=== PATIENT | male | born 1965 | race Caucasian/White ===

== ENCOUNTER 2019-05-25 18:25 | Emergency (ER) | payer BC ==
[2019-05-25 18:43] VITALS: O2SAT 97
[2019-05-25] MEDS ORDERED: TYLENOL EXTRA STRENGTH 500 MG PO STA (19:47)
--- NOTE | 2019-05-25 19:47 | ERPHSYRPT ---
- History of Present Illness Time Seen by Provider: 05/25/19 19:45 Source: patient Exam Limitations: no limitations Patient Subjective Stated Complaint: Pt states "My whole family tested positive for the flu and I am really hurting today and I think I have it." Triage Nursing Assessment: Pt presented alert and oriented X 3, skin wpd pt ambulates with an upright steady gait, able to speak in clear full sentecens PT in no apparent respiratory distress. Physician History: Pt states "My whole family tested positive for the flu and I am really hurting today and I think I have it." Timing/Duration: today Cough Quality/Degree: moderate Associated Symptoms: cough, headache, muscle aches, nasal congestion, nasal drainage, sore throat Allergies/Adverse Reactions: No Known Drug Allergies Allergy (Unverified 05/25/19 18:43) Hx Tetanus, Diphtheria Vaccination/Date Given: Yes Hx Influenza Vaccination/Date Given: No Hx Pneumococcal Vaccination/Date Given: No Immunizations Up to Date: Yes - Review of Systems Constitutional: Fever, Chills Eyes: No Symptoms, Tearing Ears, Nose, & Throat: No Symptoms, Throat Pain Respiratory: Cough, No Dyspnea Cardiac: No Chest Pain, No Edema, No Syncope Abdominal/Gastrointestinal: No Abdominal Pain, No Nausea, No Vomiting, No Diarrhea Genitourinary Symptoms: No Dysuria Musculoskeletal: No Back Pain, No Neck Pain Skin: No Rash Neurological: No Dizziness, No Focal Weakness, No Sensory Changes Psychological: No Symptoms Endocrine: No Symptoms All Other Systems: Reviewed and Negative - Past Medical History Pertinent Past Medical History: No - Past Surgical History Past Surgical History: Yes Other Surgical History: cyst removed from shoulder and leg - Social History Smoking Status: Never smoker Exposure to second hand smoke: No Drug Use: none Patient Lives Alone: No - Nursing Vital Signs Nursing Vital Signs: Initial Vital Signs Temperature 101.6 F 05/25/19 18:39 Pulse Rate 107 H 05/25/19 18:39 Respiratory Rate 20 05/25/19 18:39 Blood Pressure 163/106 05/25/19 18:39 O2 Sat by Pulse Oximetry 97 05/25/19 18:39 Pain Scale Pain Intensity 7 - Physical Exam General Appearance: no apparent distress, alert Eye Exam: PERRL/EOMI, eyes nml inspection Ears, Nose, Throat Exam: normal ENT inspection, TMs normal, pharynx normal, moist mucous membranes Neck Exam: normal inspection, non-tender, supple, full range of motion Respiratory Exam: normal breath sounds, lungs clear, No respiratory distress Cardiovascular Exam: regular rate/rhythm, normal heart sounds Gastrointestinal/Abdomen Exam: soft, No tenderness Back Exam: normal inspection, No CVA tenderness, No vertebral tenderness Extremity Exam: normal inspection, normal range of motion Neurologic Exam: alert, oriented x 3, cooperative, normal mood/affect, sensation nml, No motor deficits Skin Exam: normal color, warm, dry, No rash Lymphatic Exam: No adenopathy SpO2: 97 - Course Nursing assessment & vital signs reviewed: Yes Ordered Tests: Medication Summary Discontinued Medications Generic Name Dose Route Start Last Admin Trade Name Freq PRN Reason Stop Dose Admin Acetaminophen 1,000 mg 05/25/19 19:47 05/25/19 19:59 Tylenol Extra Strength 500 Mg PO 05/25/19 19:48 1,000 mg STAT STA Administration Acetaminophen Confirm 05/25/19 19:52 Tylenol Extra Strength 500 Mg Administered 05/25/19 19:53 Dose 1,000 mg .ROUTE .STK-MED ONE Oseltamivir Phosphate Confirm 05/25/19 19:58 Tamiflu 75mg Capsule Administered 05/25/19 19:59 Dose 75 mg PO .STK-MED ONE Lab/Rad Data: Laboratory Results 05/25/19 Range/Units 19:00 Influenza Type A Ag POSITIVE (NEGATIVE) Influenza Type B Ag NEGATIVE (NEGATIVE) RSV (PCR) NEGATIVE (Negative) Group A Strep Antibody NEGATIVE (NEGATIVE) - Progress Progress: unchanged Air Movement: good Blood Culture(s) Obtained: No Antibiotics given: No Counseled pt/family regarding: lab results, diagnosis, need for follow-up - Departure Departure Disposition: Home Clinical Impression: Influenza A Condition: Stable Critical Care Time: No Referrals: DOCTOR,NO FAMILY [Primary Care Provider] - Instructions: Fever, Adult (DC), Flu, Adult (DC) Additional Instructions: Discharge/Care Plan JASMYNE KU was seen on 05/25/19 in the Emergency Room. The patient was counseled regarding Diagnosis,Lab results, Imaging studies, need for follow up and when to return to the Emergency Room. Prescriptions given: Discharge Note I have spoken with the patient and/or caregivers. I have explained the patient' s condition, diagnosis and treatment plan based on the information available to me at this time. I have answered the patient's and/or caregiver's questions and addressed any concerns. The patient and/or caregivers have as good understanding of the patient's diagnosis, condition and treatment plan as can be expected at this point. The vital signs have been stable. The patient's condition is stable and appropriate for discharge from the emergency department. The patient will pursue further outpatient evaluation with the primary care physician or other designated or consulting physician as outlined in the discharge instructions. The patient and/or caregivers are agreeable to this plan of care and follow-up instructions have been explained in detail. The patient and/or caregivers have received these instruction. The patient/and or caregivers are aware that any significant change in condition or worsening of symptoms should prompt an immediate return to this or the closest emergency department or call 911. JASMYNE KU was seen on 05/25/19 n the Emergency Room. At that time you were treated for an emergent condition, during your visit Laboratory, Radiology and/ or other procedures may have been ordered. It is very important that you follow- up with your Primary Care Physician NO FAMILY DOCTOR within the next 24-48 hours to review your Emergency Room visit and the final results of testing that was ordered. Some test results such as Urine Cultures, Blood Cultures, and other cultures if ordered will not be finalized for 24-48 hours. If you do not have a Primary Care Provider please call the medical records department at [phone] to obtain a copy of your results or you may sign into our patient portal to obtain these results by visiting us @ [email or web address] and completing the following steps: 1. Click on the Patient Portal link 2. Click the Patient Self Enrollment Link to complete the enrollment form and entering your 3. Once the enrollment form is completed you will receive an email with a temporary ID and password at the email address you provided. 4. Next choose a user name and password. Your user name must be at least 4 characters long and your password must be at least 4 characters long. 5. Choose a security question from the list and provide your answer to the question. If you already have signed into the Health Portal you may access your Health Care Information 20/12 by the following steps: 1. Login to our website @ [email or web address] 2. Enter your original user name and password. FAQS [facility] Portal is an online tool that contains your Lab Results, Radiology Reports, Visit History, Discharge Instructions and Health Summary Lab and Radiology Results will not be available for 72 hours on the portal. The Portal is a secure site, passwords are encryted and URLs are re-written so they cannot be copied and pasted. You and authorized family members are the only ones who can access your Portal. Also there is a timeout feature that protects your information if you leave the Portal page open. If you have technical difficulty please use the Contact Us link on the page this will allow you to submit any questions you have regarding the Portal or you may contact the Medical Record Department at [phone]. Prescriptions: Guaifenesin/Dextromethorphan [Mucinex Dm ER 600-30 mg Tablet] 1 each PO BID #20 tab.er.12h Oseltamivir 75 mg [Tamiflu 75MG Capsule] 75 mg PO BID #10 cap
[2019-05-25] MEDS ORDERED: TYLENOL EXTRA STRENGTH 500 MG ONE (19:52)
[2019-05-25 19:55] LABS: Group A Strep NEGATIVE (NEGATIVE)
[2019-05-25 19:56] LABS: INFLUENZA A POSITIVE (NEGATIVE); INFLUENZA B NEGATIVE (NEGATIVE); RESPIRATORY SYNCTIAL VIRUS NEGATIVE (Negative)
[2019-05-25] MEDS ORDERED: Tamiflu 75MG Capsule PO ONE ×2 (19:58→20:10)
[2019-05-25 20:02] VITALS: PULSE 100
[2019-05-25 20:03] VITALS: BP 184/98
== END 2019-05-25 20:25 | disposition home or self-care (01) ==
LOC: ED 18:25
DX: J11.1 Influenza due to unidentified influenza virus with other respiratory manifestations (principal)
CPT/HCPCS: 87631; 87651; 99283; A9270-GY

== ENCOUNTER 2022-09-16 13:09 | Emergency (ER) | payer BC ==
--- NOTE | 2022-09-16 13:13 | ERPHSYRPT ---
- History of Present Illness Time Seen by Provider: 09/16/22 13:13 Source: patient Exam Limitations: no limitations Physician History: This is a 56-year-old obese white male who presented to the emergency department because of hypertension. Patient is completely asymptomatic per his report. 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 Patient's blood pressure was taken and it was a systolic blood pressure greater than 200. Therefore, the patient was sent to the emergency department for further evaluation. Again, the patient states he has no chest pain, no headache, no visual changes. He has not take any medications chronically. He has no primary care physician. He has no known drug allergies. Timing/Duration: today Severity: mild Associated Symptoms: denies symptoms, No abdominal pain, No shortness of breath, No chest pain, No headaches Allergies/Adverse Reactions: No Known Drug Allergies Allergy (Unverified 05/25/19 18:43) Hx Tetanus, Diphtheria Vaccination/Date Given: Yes Hx Influenza Vaccination/Date Given: No Hx Pneumococcal Vaccination/Date Given: No Travel Risk - International Travel Have you traveled outside of the country in past 3 weeks: No - Coronavirus Screening Are you exhibiting any of the following symptoms?: No Close contact with a COVID-19 positive Pt in past 14-21 Days: No - Review of Systems Constitutional: No Symptoms Eyes: No Symptoms Ears, Nose, & Throat: No Symptoms Respiratory: No Symptoms Cardiac: No Symptoms Abdominal/Gastrointestinal: No Symptoms Genitourinary Symptoms: No Symptoms Musculoskeletal: No Symptoms Skin: No Symptoms Neurological: No Symptoms Psychological: No Symptoms Endocrine: No Symptoms Hematologic/Lymphatic: No Symptoms Immunological/Allergic: No Symptoms All Other Systems: Reviewed and Negative - Past Medical History Pertinent Past Medical History: No - Past Surgical History Past Surgical History: Yes Other Surgical History: cyst removed from shoulder and leg - Social History Smoking Status: Never smoker Exposure to second hand smoke: No Drug Use: none Patient Lives Alone: No - Nursing Vital Signs Nursing Vital Signs: Initial Vital Signs Temperature 99 F 09/16/22 13:15 Pulse Rate 103 H 09/16/22 13:15 Respiratory Rate 22 09/16/22 13:15 Blood Pressure 235/130 09/16/22 13:15 O2 Sat by Pulse Oximetry 97 09/16/22 13:15 Pain Scale Pain Intensity 0 - Physical Exam General Appearance: no apparent distress, alert, obese Eye Exam: PERRL/EOMI, eyes nml inspection Ears, Nose, Throat Exam: normal ENT inspection, moist mucous membranes Neck Exam: normal inspection, non-tender, supple, full range of motion Respiratory Exam: normal breath sounds, lungs clear, airway intact, No chest tenderness, No respiratory distress Cardiovascular Exam: tachycardia Gastrointestinal/Abdomen Exam: soft, normal bowel sounds, No tenderness Rectal Exam: not done Back Exam: normal inspection, normal range of motion, No CVA tenderness Extremity Exam: normal inspection, normal range of motion, pelvis stable Neurologic Exam: alert, oriented x 3, cooperative, 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 No comparison twelve-lead EKG available.) Ordered Tests: Active Orders 24 hr Category Date Time Status EKG-ER Only STAT Care 09/16/22 13:21 Active IV Insertion STAT Care 09/16/22 13:21 Active Pulse Oximetry (ED) STAT Care 09/16/22 13:21 Active CBC W DIFF Stat Lab 09/16/22 13:32 Completed CK-Creatinine Phosphokinase Stat Lab 09/16/22 13:32 Completed CMP Stat Lab 09/16/22 13:32 Completed MAGNESIUM Stat Lab 09/16/22 13:32 Completed TROPONIN Q4H Lab 09/16/22 17:30 Ordered TROPONIN Q4H Lab 09/16/22 21:30 Ordered TROPONIN Stat Lab 09/16/22 13:32 Completed Medication Summary Discontinued Medications Generic Name Dose Route Start Last Admin Trade Name Freq PRN Reason Stop Dose Admin Enalaprilat 0.625 mg 09/16/22 14:51 Enalaprilat 2.5 Mg Injection IV 09/16/22 14:52 STAT ONE Labetalol HCl 20 mg 09/16/22 13:23 09/16/22 13:47 Labetalol Hcl 20 Mg/4 Ml Disp.Syringe IV 09/16/22 13:24 20 mg STAT ONE Administration Labetalol HCl Confirm 09/16/22 13:47 Labetalol Hcl 20 Mg/4 Ml Disp.Syringe Administered 09/16/22 13:48 Dose 20 mg IV .STK-MED ONE Lab/Rad Data: Laboratory Result Diagrams 09/16/22 13:32 09/16/22 13:32 Laboratory Results 09/16/22 09/16/22 Range/Units 13:32 13:32 WBC 9.1 (4.0-10.5) x10^3/uL RBC 5.35 (4.1-5.6) x10^6/uL Hgb 15.0 (12.5-18.0) g/dL Hct 44.7 (42-50) % MCV 83.6 (78-100) fL MCH 28.0 (26-32) pg MCHC 33.6 (32-36) g/dL RDW 13.2 (11.5-14.0) % Plt Count 226 (150-450) x10^3/uL MPV 11.2 H (7.5-11.0) fL Gran % 66.3 H (36.0-66.0) % Immature Gran % (Auto) 0.2 (0.00-0.4) % Nucleat RBC Rel Count 0.0 (0.00-0.1) % Eos # (Auto) 0.24 (0-0.5) x10^3/uL Immature Gran # (Auto) 0.02 (0.00-0.03) x10^3u/L Absolute Lymphs (auto) 1.69 (1.0-4.6) x10^3/uL Absolute Monos (auto) 1.04 (0.0-1.3) x10^3/uL Absolute Nucleated RBC 0.00 (0.00-0.01) x10^3u/L Lymphocytes % 18.6 L (24.0-44.0) % Monocytes % 11.4 (0.0-12.0) % Eosinophils % 2.6 (0.00-5.0) % Basophils % 0.9 (0.0-0.4) % Absolute Granulocytes 6.02 (1.4-6.9) x10^3/uL Basophils # 0.08 (0-0.4) x10^3/uL Sodium 141 (137-145) mmol/L Potassium 4.0 (3.5-5.1) mmol/L Chloride 105 (98-107) mmol/L Carbon Dioxide 23 (22-30) mmol/L Anion Gap 16.3 H (5-15) MEQ/L BUN 15 (9-20) mg/dL Creatinine 1.18 (0.66-1.25) mg/dL Estimated GFR > 60.0 ML/MIN Glucose 99 (74-106) mg/dL Calcium 9.0 (8.4-10.2) mg/dL Magnesium 2.1 (1.6-2.3) mg/dL Total Bilirubin 0.90 (0.2-1.3) mg/dL AST 37 (17-59) U/L ALT 29 (0-50) U/L Alkaline Phosphatase 80 (38-126) U/L Creatine Kinase 379 H (55-170) U/L Troponin I < 0.012 (0.000-0.034) ng/mL Serum Total Protein 7.3 (6.3-8.2) g/dL Albumin 4.2 (3.5-5.0) g/dL - Progress Progress: improved Medical Desision Making - Independent Historian Additional History obtained from: Spouse - Discussion of managment Reviewed:: Test results Agreed on:: Treatment plan, need for follow-up - Diagnostic Testing Diagnostic test were ordered, analyzed, and reviewed by me: Yes - Risk of complications The pt has a mod risk of morbidity or mortality based on: Need for prescription drug management - Departure Departure Disposition: Home Clinical Impression: Hypertension Condition: Stable Critical Care Time: Yes Critical Care Time(excluding separately billable procedures): Critical 30-74 mins (35 minutes) Referrals: DOCTOR,NO FAMILY [Primary Care Provider] - Follow up/PCP as directed Additional Instructions: Take your medication as prescribed. Follow-up with a prescribing provider (list provided) in 3-5 days for further evaluation management Prescriptions: Amlodipine Besylate 5 mg [Norvasc 5 mg] 5 mg PO DAILY #14 tablet
[2022-09-16] MEDS ORDERED: TRANDATE 20 MG/4 ML SYRINGE IV ONE ×2 (13:23→13:47)
[2022-09-16 13:40] LABS: Absolute Neutrophil Ct (ANC) 6.02 x10^3/uL (1.4-6.9); BASOPHIL % 0.9 % (0.0-0.4); Basophil (Absolute #) 0.08 x10^3/uL (0-0.4); Eosinophil % 2.6 % (0.00-5.0); Eosinophil (Absolute #) 0.24 x10^3/uL (0-0.5); Hematocrit 44.7 % (42-50); IMMATURE GRAN # 0.02 x10^3u/L (0.00-0.03); IMMATURE GRAN % 0.2 % (0.00-0.4); Lymphocyte (Absolute #) 1.69 x10^3/uL (1.0-4.6); Lymphocytes % 18.6 % (24.0-44.0); Mean Cell Volume 83.6 fL (78-100); Mean Corpuscular Hgb Concent. 33.6 g/dL (32-36); Mean Platelet Volume 11.2 fL (7.5-11.0); Monocyte (Absolute #) 1.04 x10^3/uL (0.0-1.3); Monocytes % 11.4 % (0.0-12.0); Neutrophil % 66.3 % (36.0-66.0); Platelet Count 226 x10^3/uL (150-450); Red Blood Count 5.35 x10^6/uL (4.1-5.6); Red Cell Distribution Width 13.2 % (11.5-14.0); White Blood Count 9.1 x10^3/uL (4.0-10.5)
[2022-09-16 14:04] LABS: ALBUMIN 4.2 g/dL (3.5-5.0); ALKALINE PHOSPHATASE 80 U/L (38-126); ANION GAP 16.3 MEQ/L (5-15); BLOOD UREA NITROGEN 15 mg/dL (9-20); CHLORIDE 105 mmol/L (98-107); CK-Creatinine Phosphokinase 379 U/L (55-170); Carbon Dioxide 23 mmol/L (22-30); Creatinine 1 1.18 mg/dL (0.66-1.25); EST GLOMERULAR FILTRATION RATE > 60.0 ML/MIN; Glucose 99 mg/dL (74-106); MAGNESIUM 2.1 mg/dL (1.6-2.3); SGOT/AST 37 U/L (17-59); SGPT/ALT 29 U/L (0-50); SODIUM 141 mmol/L (137-145); TROPONIN < 0.012 ng/mL (0.000-0.034); Total Protein 7.3 g/dL (6.3-8.2)
[2022-09-16] MEDS ORDERED: ENALAPRILAT 2.5 MG INJECTION IV ONE ×2 (14:51→15:03)
[2022-09-16 15:18] VITALS: BP 149/89; PULSE 83; O2SAT 95
== END 2022-09-16 15:25 | disposition home or self-care (01) ==
LOC: ED 13:09
DX: I10 Essential (primary) hypertension (principal)
CPT/HCPCS: 36000; 36415; 80053; 82550; 83735; 84484; 85025; 93005; 94760; 96374; 99284; 99291